=== PATIENT | male | born 1985 | race Caucasian/White ===

== ENCOUNTER 2018-08-21 10:50 | Emergency (ER) | payer MEDICAID ==
[~2018-08-21] VITALS: Ht 182.9 cm; Wt 124.1 kg
[~2018-08-21 10:50] MED LIST: CYCL-1 PO; SULF1TAB49 PO
[2018-08-21 10:55] VITALS: BP 143/104
[2018-08-21] MEDS ORDERED: proparacaine 0.5% ophthalmic drops 15ml EACHEYE ONE (11:30)
[2018-08-21] MEDS ORDERED: sod sulfacetamide/prednisoLONE ophth susp 5ml EACHEYE SCH (12:00)
== END 2018-08-21 12:20 | disposition left against medical advice (07) ==
LOC: ER 10:51
DX: H10.9 Unspecified conjunctivitis (principal); F15.90 Other stimulant use, unspecified, uncomplicated; F17.200 Nicotine dependence, unspecified, uncomplicated; Z88.1 Allergy status to other antibiotic agents; Z88.5 Allergy status to narcotic agent; Z79.2 Long term (current) use of antibiotics
CPT/HCPCS: 99282

== ENCOUNTER 2021-06-17 08:37 | Emergency (ER) | payer MEDICAID ==
[~2021-06-17] VITALS: Ht 182.9 cm; Wt 159.8 kg
[2021-06-17 08:42] VITALS: BP 145/110
== END 2021-06-17 20:21 | disposition left against medical advice (07) ==
LOC: ER 08:38
DX: L02.414 Cutaneous abscess of left upper limb (principal); Z53.21 Procedure and treatment not carried out due to patient leaving prior to being seen by health care provider

== ENCOUNTER 2021-06-28 15:17 | Emergency (ER) | payer MEDICAID ==
[~2021-06-28] VITALS: Ht 182.9 cm; Wt 159.1 kg
[2021-06-28 16:12] VITALS: BP 117/96
[2021-06-28] MEDS ORDERED: CEPH250T PO (17:28)
[2021-06-28] MEDS ORDERED: SULF1TAB45 PO (17:28)
== END 2021-06-28 18:20 | disposition home or self-care (01) ==
LOC: ER 15:18
DX: L00 Staphylococcal scalded skin syndrome (principal); F15.90 Other stimulant use, unspecified, uncomplicated; Z86.14 Personal history of Methicillin resistant Staphylococcus aureus infection; Z87.81 Personal history of (healed) traumatic fracture; Z88.1 Allergy status to other antibiotic agents; Z79.2 Long term (current) use of antibiotics; Z79.899 Other long term (current) drug therapy
CPT/HCPCS: 99283